=== PATIENT | male | born 1985 | race Caucasian/White ===

== ENCOUNTER 2020-04-20 14:46 | Outpatient (REF) | payer OTHER, SELFPAY | END 2020-04-20 14:47 | disposition home or self-care (01) | LOC: HO.LAB 14:46 | PROVIDERS: Visit Provider Internal Medicine | DX: Z20.828 Contact with and (suspected) exposure to other viral communicable diseases (principal) | CPT/HCPCS: C9803; U0003 ==

== ENCOUNTER 2020-12-21 11:05 | Emergency (ER) | payer OTHER, SELFPAY ==
[2020-12-21] VITALS (7 sets, daily range): BP systolic 144–174; BP diastolic 82–112; PULSE 81–98; RESP 15–17; TEMP 36.4–37; O2SAT 98–100; BMI 33.4
--- NOTE | 2020-12-21 11:17 | ED.GENADULT ---
HPI - General Adult General Chief complaint: General Medical <NEGRO Oconnor Last Filed: 12/21/20 11:19> Stated complaint: heat exhaustion <NEGRO Oconnor Last Filed: 12/21/20 11:19> Time Seen by Provider: 12/21/20 11:13 <NEGRO Oconnor Last Filed: 12/21/20 11:19> Source: patient and EMS <NEGRO Oconnor Last Filed: 12/21/20 11:19> Mode of arrival: EMS <NEGRO Oconnor Last Filed: 12/21/20 11:19> Limitations: no limitations <NEGRO Oconnor Last Filed: 12/21/20 11:19> History of Present Illness HPI narrative: 35 y/o <NEGRO Oconnor Last Filed: 12/21/20 11:19> 35 y/o male with no significant past medical history presenting to the ED complaining of lightheadedness/dizziness, nausea and vomiting s/p working in the sun since this morning. Was sent in by his boss. Reports symptomatic improvement at present. Denies fever, chills, CP/SOB, abdominal pain, recent travel, cough <NEGRO Rose Last Filed: 12/21/20 15:05> Onset (ago): day(s) <NEGRO Rose - Last Filed: 12/21/20 15:05> Related Data Allergies/adverse reactions: Allergies Allergy/AdvReac Type Severity Reaction Status Date / Time No Known Allergies Allergy Verified 12/21/20 11:12 <NEGRO Oconnor Last Filed: 12/21/20 11:19> Review of Systems Review of Systems: Constitutional: No Fever, No Chills, + diaphoresis, No Fatigue, No Malaise ENT/Mouth:No Ear Pain, No Nasal Congestion, No sore throat, Eyes: No Eye Pain, No Swelling, No Redness, No Discharge, No Vision Changes Cardiovascular: No Chest Pain, No SOB, No Orthopnea, No Edema Respiratory: No Cough, No Sputum, No Wheezing, No Dyspnea Gastrointestinal: + Nausea, + Vomiting, No Diarrhea, No Abdominal pain Genitourinary: No irregular bleeding, No Dysuria, No Urinary Frequency, No Hematuria Musculoskeletal: No joint pain, No Myalgias, No Joint Swelling Skin: No Skin Lesions, No rash Neuro: No Weakness, No Loss of Consciousness, +Lightheaded/ Dizziness, No Headache <NEGRO Rose Last Filed: 12/21/20 15:05> Yes all other systems are reviewed and are negative <NEGRO Rose - Last Filed: 12/21/20 15:05> [facility] Past Medical History Attestation statement: The following information was validated with the patient. <NEGRO Rose - Last Filed: 12/21/20 15:05> Social History Social History: Social History Alcohol intake: current Alcohol intake frequency: 0-2 drinks per day Patient Tobacco Use Status: Current someday Tobacco user Use of substances other than those prescribed or required for medical reasons: No Advance Directives: No Advance Directives Information Provided: No <NEGRO Oconnor - Last Filed: 12/21/20 11:19> Physical Exam Vital Signs: Vital Signs: Last Vital Signs Temp 97.9 F 12/21/20 14:01 Pulse 82 12/21/20 14:01 Resp 16 12/21/20 14:01 BP 151/82 H 12/21/20 14:01 Pulse Ox 99 12/21/20 14:01 Body Mass Index 33.4 <NEGRO Oconnor - Last Filed: 12/21/20 11:19> Vital Signs: Last Vital Signs Temp 97.9 F 12/21/20 14:01 Pulse 82 12/21/20 14:01 Resp 16 12/21/20 14:01 BP 151/82 H 12/21/20 14:01 Pulse Ox 99 12/21/20 14:01 Body Mass Index 33.4 <NEGRO Rose - Last Filed: 12/21/20 15:05> Const: General: cooperative, healthy appearing and no acute distress <NEGRO Rose - Last Filed: 12/21/20 15:05> Orientation/consciousness: patient oriented x3 <NEGRO Rose - Last Filed: 12/21/20 15:05> Limitations: no limitations <NEGRO Rose Last Filed: 12/21/20 15:05> HENMT: Head: Yes normal to inspection <Tamara Glaseroste, [facility] Last Filed: 12/21/20 15:05> Ears: hearing grossly normal bilaterally <Tamara Sheryl [facility] Last Filed: 12/21/20 15:05> General nose exam: Normal external nose present <Tamara Sheryl [facility] Last Filed: 12/21/20 15:05> Face and sinus: Yes normal facial exam <Tamara Sheryl [facility] Last Filed: 12/21/20 15:05> Eyes: General: appearance normal, both eyes and all related structures <Tamara Sheryl [facility] Last Filed: 12/21/20 15:05> Pupils: Equal, round and reactive pupils present <Tamara Sheryl [facility] Last Filed: 12/21/20 15:05> EOM: EOMs intact bilaterally <Tamara Sheryl [facility] Last Filed: 12/21/20 15:05> Neck: Neck: Yes normal visual inspection and Yes no meningeal signs <Tamara Sheryl [facility] Last Filed: 12/21/20 15:05> Resp: Effort & Inspection: normal respiratory effort <Tamara Sheryl [facility] Last Filed: 12/21/20 15:05> Auscultation: clear to auscultation bilaterally, no rales and no wheezes <Tamara Sheryl [facility] Last Filed: 12/21/20 15:05> Cardio: Rate: regular rate <Tamara Sheryl [facility] Last Filed: 12/21/20 15:05> Heart sounds: S1 normal heart sound present and S2 normal heart sound present <Tamara Sheryl [facility] Last Filed: 12/21/20 15:05> GI: Inspection: Yes normal to inspection <Tamara Sheryl [facility] Last Filed: 12/21/20 15:05> Palpation (GI): Soft to palpation, nontender, no guarding and not rigid <Tamara Sheryl [facility] Last Filed: 12/21/20 15:05> Skin: Rashes: no rashes <Tamara Sheryl [facility] Last Filed: 12/21/20 15:05> Wounds: no wounds <Tamara Sheryl [facility] Last Filed: 12/21/20 15:05> Neuro: General: patient oriented x3, gait normal, tone normal, moves all extremities and no meningeal signs <NEGRO Rose Last Filed: 12/21/20 15:05> Cranial nerves: Yes Equal, round and reactive pupils present <NEGRO Rose Last Filed: 12/21/20 15:05> Gait exam (Neuro): Normal gait present <NEGRO Rose Last Filed: 12/21/20 15:05> Extrem: General: Yes normal to inspection <NEGRO Rose Last Filed: 12/21/20 15:05> Course Course Course Narrative: -1245--noted GERARDO with creatinine 1.62, no priors to compare. Bilirubins and AST/ALT also elevated >> plan to give 3L IVF and repeat -1502--repeat BMP improved after 3L IVF creatinine improved to 1.1, LFTs also improved. Discussed with patient need for increase fluid intake and close follow-up with his PCP. Worrisome signs discussed, he verbalized understanding feel safe for discharge home <NEGRO Rose Last Filed: 12/21/20 15:05> Medical Decision Making MDM Narrative Medical decision making narrative: 35 y/o male with no significant past medical history presenting to the ED complaining of lightheadedness/dizziness, nausea and vomiting s/p working in the sun since this morning. On exam VSS, NAD/well-appearing, exam nonfocal. Concern for heat exhaustion/dehydration or metabolic abnormalities. Plan: EKG, labs, UA, IVF, reassess <NEGRO Rose Last Filed: 12/21/20 15:05> Lab Data Result diagrams: : 12/21/20 11:42 12/21/20 14:24 <NEGRO Oconnor - Last Filed: 12/21/20 11:19> Labs: Lab Results 12/21/20 12/21/20 12/21/20 Range/Units 11:42 11:42 14:24 WBC 11.4 H (4.8-10.8) X10*3/uL RBC 4.84 (4.60-5.80) X10*6/uL Hgb 16.0 (14.0-18.0) g/dl Hct 44.8 (42-52) % MCV 92.6 (80-98) fL MCH 33.1 H (27.0-33.0) pg MCHC 35.7 (31.0-36.0) g/dl RDW 12.7 (11.0-16.0) % Plt Count 246 (160-400) X10*3/uL MPV 10.0 (9.4-12.4) fL Immature Gran % (Auto) 1.6 H (0.0-0.4) % Neut % (Auto) 69.4 (45-73) % Lymph % (Auto) 19.2 L (20-40) % King % (Auto) 8.4 (2-11) % Eos % (Auto) 1.0 (0-4) % Baso % (Auto) 0.4 (0-2) % Lymph # (Auto) 2.2 (1.2-4.9) X10*3/uL King # (Auto) 1.0 (0.1-1.2) X10*3/uL Eos # (Auto) 0.1 (0.0-0.4) X10*3/uL Baso # (Auto) 0.1 (0.0-0.2) X10*3/uL Abs Immat Gran (auto) 0.18 H (0.00-0.03) X10*3/uL Absolute Neuts (auto) 7.9 (2.0-8.3) X10*3/uL Absolute Nucleated RBC 0.000 (0.0-0.012) X10*3/uL Nucleated RBC % (auto) 0.0 (0.0-0.2) /100WBC Sodium 138 139 (135-145) mmol/L Potassium 4.0 3.9 (3.3-5.1) mmol/L Chloride 98 107 (96-108) mmol/L Carbon Dioxide 27 23 (22-29) mmol/L Anion Gap 17 13 (12-20) BUN 13 13 (9-16) mg/dL Creatinine 1.62 H 1.17 (0.5-1.4) mg/dL Estim Creat Clear Calc 73.5 101.8 Estimated GFR 49 > 60 Random Glucose 95 92 (60-115) mg/dL Calcium 10.2 8.2 L D (8.4-10.2) mg/dL Magnesium 1.8 (1.6-2.6) mg/dL Total Bilirubin 1.7 H 1.4 H (0.0-1.0) mg/dL Direct Bilirubin 0.6 H 0.5 (0.0-0.5) mg/dL AST 79 H 62 H (5-37) U/L ALT 96 H 75 H (0-40) U/L Alkaline Phosphatase 94 71 D (39-117) U/L Total Protein 8.6 H 6.7 D (6.5-8.0) g/dL Albumin 5.4 H 4.2 D (3.5-5.0) g/dL <NEGRO Oconnor - Last Filed: 12/21/20 11:19> Lab Results 12/21/20 12/21/20 12/21/20 Range/Units 11:42 11:42 14:24 WBC 11.4 H (4.8-10.8) X10*3/uL RBC 4.84 (4.60-5.80) X10*6/uL Hgb 16.0 (14.0-18.0) g/dl Hct 44.8 (42-52) % MCV 92.6 (80-98) fL MCH 33.1 H (27.0-33.0) pg MCHC 35.7 (31.0-36.0) g/dl RDW 12.7 (11.0-16.0) % Plt Count 246 (160-400) X10*3/uL MPV 10.0 (9.4-12.4) fL Immature Gran % (Auto) 1.6 H (0.0-0.4) % Neut % (Auto) 69.4 (45-73) % Lymph % (Auto) 19.2 L (20-40) % King % (Auto) 8.4 (2-11) % Eos % (Auto) 1.0 (0-4) % Baso % (Auto) 0.4 (0-2) % Lymph # (Auto) 2.2 (1.2-4.9) X10*3/uL King # (Auto) 1.0 (0.1-1.2) X10*3/uL Eos # (Auto) 0.1 (0.0-0.4) X10*3/uL Baso # (Auto) 0.1 (0.0-0.2) X10*3/uL Abs Immat Gran (auto) 0.18 H (0.00-0.03) X10*3/uL Absolute Neuts (auto) 7.9 (2.0-8.3) X10*3/uL Absolute Nucleated RBC 0.000 (0.0-0.012) X10*3/uL Nucleated RBC % (auto) 0.0 (0.0-0.2) /100WBC Sodium 138 139 (135-145) mmol/L Potassium 4.0 3.9 (3.3-5.1) mmol/L Chloride 98 107 (96-108) mmol/L Carbon Dioxide 27 23 (22-29) mmol/L Anion Gap 17 13 (12-20) BUN 13 13 (9-16) mg/dL Creatinine 1.62 H 1.17 (0.5-1.4) mg/dL Estim Creat Clear Calc 73.5 101.8 Estimated GFR 49 > 60 Random Glucose 95 92 (60-115) mg/dL Calcium 10.2 8.2 L D (8.4-10.2) mg/dL Magnesium 1.8 (1.6-2.6) mg/dL Total Bilirubin 1.7 H 1.4 H (0.0-1.0) mg/dL Direct Bilirubin 0.6 H 0.5 (0.0-0.5) mg/dL AST 79 H 62 H (5-37) U/L ALT 96 H 75 H (0-40) U/L Alkaline Phosphatase 94 71 D (39-117) U/L Total Protein 8.6 H 6.7 D (6.5-8.0) g/dL Albumin 5.4 H 4.2 D (3.5-5.0) g/dL <NEGRO Rose - Last Filed: 12/21/20 15:05> Discharge Plan Discharge Clinical Impression: Acute dehydration Heat exhaustion Qualifiers: Encounter type: initial encounter Qualified Code(s): T67.5XXA - Heat exhaustion, unspecified, initial encounter <NEGRO Oconnor - Last Filed: 12/21/20 11:19> Patient Disposition: Home, Self-Care <NEGRO Oconnor - Last Filed: 12/21/20 11:19> Instructions: Heat Exhaustion (ED), Dehydration (ED) <NEGRO Oconnor - Last Filed: 12/21/20 11:19> Additional Instructions: You are dehydrated Make sure you push fluids for the next few days, drink water, Gatorade, Pedialyte, rest, stay out of the sun/heat If you develop persistent nausea/vomiting, headache, lightheadedness/dizziness, near passing out please return to the ED immediately Please have close follow-up with her doctor in 3 days If her symptoms recur or persist please return to the ED <NEGRO Oconnor - Last Filed: 12/21/20 11:19> Referrals: Ayan Boucher MD [Primary Care Provider] - 3 days <NEGRO Oconnor - Last Filed: 12/21/20 11:19> Stand Alone Forms: Work/School Release <NEGRO Oconnor - Last Filed: 12/21/20 11:19>
--- NOTE | 2020-12-21 11:29 | ECG_ITS ---
Test Reason : GENERAL MEDICAL Blood Pressure : / mmHG Vent. Rate : 088 BPM Atrial Rate : 088 BPM P-R Int : 156 ms QRS Dur : 098 ms QT Int : 356 ms P-R-T Axes : 062 018 033 degrees QTc Int : 430 ms Normal sinus rhythm Normal ECG No previous ECGs available Referred By: Tamara Saucedo Electronically Signed By:KYRIE DOBSON
[2020-12-21 11:53] LABS: MANUAL DIFF FLAG NO
[2020-12-21 12:02] LABS: Basophils Absolute Auto 0.1 X10*3/uL (0.0-0.2); Basophils Percent Auto 0.4 % (0-2); Eosinophils Absolute Auto 0.1 X10*3/uL (0.0-0.4); Hematocrit 44.8 % (42-52); Imm Gran Abs Auto 0.18 X10*3/uL (0.00-0.03); Imm Gran Pct Auto 1.6 % (0.0-0.4); Lymphocytes Absolute Auto 2.2 X10*3/uL (1.2-4.9); Lymphocytes Percent Auto 19.2 % (20-40); Mean Corpuscular HGB Conc 35.7 g/dl (31.0-36.0); Mean Corpuscular Hemoglobin 33.1 pg (27.0-33.0); Mean Corpuscular Volume 92.6 fL (80-98); Monocytes Percent Auto 8.4 % (2-11); Neutrophils Absolute Auto 7.9 X10*3/uL (2.0-8.3); Neutrophils Percent Auto 69.4 % (45-73); Platelet Count 246 X10*3/uL (160-400); Red Blood Count 4.84 X10*6/uL (4.60-5.80); Red Cell Distribution Width 12.7 % (11.0-16.0); White Blood Count 11.4 X10*3/uL (4.8-10.8)
[2020-12-21 12:22] LABS: Alanine Aminotransferase 96 U/L (0-40); Albumin Level 5.4 g/dL (3.5-5.0); Alkaline Phosphatase 94 U/L (39-117); Anion Gap 17 (12-20); Aspartate Amino Transferase 79 U/L (5-37); Bilirubin Direct 0.6 mg/dL (0.0-0.5); Bilirubin Total 1.7 mg/dL (0.0-1.0); Blood Urea Nitrogen 13 mg/dL (9-16); Calcium 10.2 mg/dL (8.4-10.2); Carbon Dioxide 27 mmol/L (22-29); Chloride 98 mmol/L (96-108); Creatinine Clr Calc Pharmacy 73.5; Estimated Glomerular Filt Rate 49; Glucose Random 95 mg/dL (60-115); Magnesium 1.8 mg/dL (1.6-2.6); Sodium 138 mmol/L (135-145); Total Protein 8.6 g/dL (6.5-8.0)
[2020-12-21] MEDS: ondansetron HCL 4 MG/2 ML VIAL IVPUSH (12:42)
[2020-12-21] MEDS: 0.9 % Sodium Chloride 1,000 ML 999 ML IVCONT ×3 (12:42→12:51)
[2020-12-21 14:59] LABS: Alanine Aminotransferase 75 U/L (0-40); Albumin Level 4.2 g/dL (3.5-5.0); Alkaline Phosphatase 71 U/L (39-117); Anion Gap 13 (12-20); Aspartate Amino Transferase 62 U/L (5-37); Bilirubin Direct 0.5 mg/dL (0.0-0.5); Bilirubin Total 1.4 mg/dL (0.0-1.0); Blood Urea Nitrogen 13 mg/dL (9-16); Calcium 8.2 mg/dL (8.4-10.2); Carbon Dioxide 23 mmol/L (22-29); Chloride 107 mmol/L (96-108); Creatinine Clr Calc Pharmacy 101.8; Estimated Glomerular Filt Rate > 60; Glucose Random 92 mg/dL (60-115); Potassium 3.9 mmol/L (3.3-5.1); Sodium 139 mmol/L (135-145); Total Protein 6.7 g/dL (6.5-8.0)
== END 2020-12-21 15:19 | disposition home or self-care (01) ==
PROVIDERS: Physician Assistant; Emergency Provider Emergency Medicine; PCP Internal Medicine
DX: T67.5XXA Heat exhaustion, unspecified, initial encounter (principal); X58.XXXA Exposure to other specified factors, initial encounter; R42 Dizziness and giddiness; R11.2 Nausea with vomiting, unspecified; Y93.89 Activity, other specified; Y92.488 Other paved roadways as the place of occurrence of the external cause; Y99.0 Civilian activity done for income or pay; F17.210 Nicotine dependence, cigarettes, uncomplicated
CPT/HCPCS: 36415; 80048; 80076; 83735; 85025; 93005; 96361; 96374; 99284; 99285; J2405

== ENCOUNTER → 2021-04-30 10:50 | Outpatient (BNVA) | payer OTHER, SELFPAY | PROVIDERS: PCP Internal Medicine; Visit Provider Internal Medicine | DX: S01.511A Laceration without foreign body of lip, initial encounter (principal); S02.5XXA Fracture of tooth (traumatic), initial encounter for closed fracture; W22.8XXA Striking against or struck by other objects, initial encounter | CPT/HCPCS: 99202 ==